=== PATIENT | female | born 1975 | race Caucasian/White ===

== ENCOUNTER → 2017-11-07 | Outpatient (CLI) | payer OTHER | LOC: M.RAD 11:02 | DX: Z12.31 Encounter for screening mammogram for malignant neoplasm of breast (principal) ==

== ENCOUNTER → 2018-02-23 | Outpatient (CLI) | payer OTHER ==
--- NOTE | 2018-02-23 11:37 | CARDNUC ---
[place] [address] CARDIAC NUCLEAR IMAGING REPORT Name: TINA GARCIA Room: [facility]#: [id number] Admission: 02/23/18 Attend Phys: Scot Haider, Discharge: Date of : 71 Date of Service: 02/23/18 1137 Report #: [id number] THIS REPORT FOR: //name// APPROVED REPORT Imaging Protocol: Rest Tc-99m/Stress Tc-99m 1 day Study performed: 02/23/2018 07:15:00 Indication: chest pain Patient Location: Out-Patient Stress Tech: Jeannette Johnson Stress Nurse: Adore Buck RN NM Tech:AL Christensen Ht: 5 ft 5 in Wt: 167 lbs BSA: 1.83 m2 BMI: 27.78 Medical History Medical History: none Medications: none Allergies: erythromycin Previous Cardiac Procedures: none Exercise History: Physically active Resting Data Rest SPECT myocardial perfusion imaging was performed in supine position 30 minutes following the intravenous injection of 10.4 mCi of Tc-99m Sestamibi. Time of rest injection: 739 Date: 02/23/2018 Time of rest imagin The images were gated to evaluate regional wall motion and calculate left ventricular ejection fraction. Administration Route: IV Administration Site: Left Hand Exercise Stress At peak stress, the patient was injected intravenously with 33.0mCi of Tc-99m Sestamibi. Time of stress injection: 954 Time of stress imagin Administration Route: IV Administration Site: Left Hand Gated Stress SPECT was performed 30 minutes after stress injection. The images were gated to evaluate regional [place] [address] CARDIAC NUCLEAR IMAGING REPORT Name: JOSETINA Copeland Room: [facility]#: [id number] Admission: 02/23/18 Attend Phys: Scot Haider, Discharge: Date of : 71 Date of Service: 02/23/18 1137 Report #: [id number] left ventricular ejection fraction. Prone imaging was performed. Stress Test Details Stress Test: Exercise stress testing was performed using a Bud protocol. HR Max Heart Rate (APMHR): 175 bpm Resting HR: 81 bpm Target HR (85% APMHR): 148 bpm Max HR Achieved: 171 bpm % of APMHR: 97 Recovery HR: 110 bpm BP Resting BP: 128/80 mmHg Recovery BP: 133/90 mmHg ECG Resting ECG: Sinus Rhythm, normal EKG Stress ECG: Sinus Tachycardia ST Change: None Arrhythmia: None Recovery ECG: Sinus Rhythm, normal EKG Recovery ST Change: None Recovery Arrhythmia: None Clinical Reason for Termination: Fatigue, Dyspnea Exercise duration: 7.0 min sec Exercise capacity: 8.54 METs Functional Aerobic Impairment 99% The patient tolerated standard Bud protocol exercise without significant symptoms. Stress ECG Conclusion The baseline 12-lead electrocardiogram shows sinus rhythm without significant ST or T wave abnormality. EKGs obtained during and post exercise showed sinus rhythm and sinus tachycardia with no significant ST or T wave changes when compared to baseline. There were no stress-induced arrhythmias. Study Quality Study: Good Artifact: [place] [address] CARDIAC NUCLEAR IMAGING REPORT Name: ELMADeonTINA Room: [facility]#: [id number] Admission: 02/23/18 Attend Phys: Scot Haider, Discharge: Date of : 71 Date of Service: 02/23/18 1137 Report #: [id number] At rest, the left ventricular ejection fraction was 72%.. Post stress, the left ventricular ejection was 77%.. TID = 0.82. Perfusion Normal left ventricular perfusion. Wall Motion Normal left ventricular wall motion. Nuclear Conclusion ECG Findings: negative for ischemia Clinical Findings: negative for ischemia Nuclear Findings: negative for ischemia Exercise Capacity: normal Left Ventricular Function: normal Risk Study: low Myocardial perfusion images show no defect to suggest infarct or ischemia. Left ventricular systolic function appears normal on gated studies. This is a low risk study. <Conclusion> The baseline 12-lead electrocardiogram shows sinus rhythm without significant ST or T wave abnormality. EKGs obtained during and post exercise showed sinus rhythm and sinus tachycardia with no significant ST or T wave changes when compared to baseline. There were no stress-induced arrhythmias. <ELECTRONICALLY SIGNED> By: Chris Randle MD, FACC 02/23/18 1137 1137 1137 Chris Randle MD, FACC /INF
== END ==
LOC: M.NUC 02-03 15:05
DX: R07.89 Other chest pain (principal); Z88.0 Allergy status to penicillin

== ENCOUNTER → 2018-02-24 | Outpatient (CLI) | payer OTHER ==
[2018-02-24 10:41] LABS: URINE BILIRUBIN NEGATIVE (Negative); URINE BLOOD NEGATIVE (Negative); URINE CLARITY CLEAR; URINE COLOR YELLOW; URINE GLUCOSE-RANDOM NEGATIVE (Negative); URINE KETONES NEGATIVE (Negative); URINE LEUKOCYTES NEGATIVE (Negative); URINE NITRITE NEGATIVE (Negative); URINE PROTEIN NEGATIVE (Negative); URINE SPECIFIC GRAVITY <= 1.005 (1.005-1.030); URINE UROBILINOGEN 0.2 E.U./dl (0.2-1.0)
[2018-02-24 10:44] LABS: ABSOLUTE EOSINOPHILS 0.3 thou/uL (0.0-0.7); ABSOLUTE LYMPHOCYTES 2.8 thou/uL (0.8-5.3); ABSOLUTE MONOCYTES 0.4 thou/uL (0.0-1.2); BASOPHILS 0.6 %; EOSINOPHILS 3.2 %; HEMATOCRIT 41.5 % (37.0-47.0); HEMOGLOBIN 14.1 gm/dL (12.0-15.0); LYMPHOCYTES 32.9 %; MCH 31.6 pg (26.0-34.0); MCV 92.9 fL (80.0-100.0); MPV 8.3 fl. (7.2-11.1); NUCLEATED RBCS 0 /100WBC; PLATELET COUNT* 295 thou/uL (150-400); POLYS 58.3 %; RBC 4.47 mil/uL (4.20-5.00); WBC 8.6 thou/uL (4.0-11.0)
[2018-02-24 11:09] LABS: ALBUMIN 3.7 g/dL (3.4-5.0); ALKALINE PHOSPHATASE 57 U/L (46-116); ANION GAP 9 mmol/L (7-16); BUN 8 mg/dL (7-18); CALCIUM 8.5 mg/dL (8.5-10.1); CHLORIDE 102 mmol/L (98-107); CHOLESTEROL 202 mg/dL (<200); CO2 25 mmol/L (21-32); CREATININE 0.9 mg/dL (0.6-1.3); GLUCOSE 92 mg/dL (70-99); HDL CHOLESTEROL 59 mg/dL (>40); LDL CHOLESTEROL 127 mg/dL (<100); POTASSIUM 3.8 mmol/L (3.5-5.1); SGOT 17 U/L (15-37); SGPT 22 U/L (30-65); SODIUM 136 mmol/L (136-145); TC:HDL 3.4 Ratio (Not establshd); TOTAL BILIRUBIN 0.5 mg/dL (<0.1-1.0); TOTAL PROTEIN 7.4 g/dL (6.4-8.2); TRIGLYCERIDE 80 mg/dL (<150); VLDL 16 mg/dL (<40)
[2018-02-24 11:16] LABS: SERUM ASSESSMENT Clear
== END ==
LOC: M.LAB 10:08
PROVIDERS: Internal Medicine Cardiovascular Disease
DX: E78.00 Pure hypercholesterolemia, unspecified (principal); R03.0 Elevated blood-pressure reading, without diagnosis of hypertension; R53.83 Other fatigue; R07.89 Other chest pain; G47.33 Obstructive sleep apnea (adult) (pediatric)

== ENCOUNTER → 2018-04-03 | Outpatient (CLI) | payer OTHER | END | disposition home or self-care (01) | LOC: M.MRI 15:32 | DX: M51.16 Intervertebral disc disorders with radiculopathy, lumbar region (principal); M46.96 Unspecified inflammatory spondylopathy, lumbar region ==

== ENCOUNTER → 2018-07-20 | Outpatient (CLI) | payer OTHER | LOC: M.ULTRA 09:03 | DX: N94.6 Dysmenorrhea, unspecified (principal); N83.291 Other ovarian cyst, right side; N83.292 Other ovarian cyst, left side; R10.2 Pelvic and perineal pain ==

== ENCOUNTER → 2018-10-20 | Outpatient (CLI) | payer OTHER ==
[2018-10-20 13:23] LABS: CHOLESTEROL 218 mg/dL (<200); HDL CHOLESTEROL 66 mg/dL (>40); LDL CHOLESTEROL 134 mg/dL (<100); SERUM ASSESSMENT Clear; TC:HDL 3.3 Ratio (Not establshd); TRIGLYCERIDE 93 mg/dL (<150); VLDL 19 mg/dL (<40)
[2018-10-20 22:07] LABS: GLYCOHEMOGLOBIN (HGB A1C) 5.3 % (4.8-5.6)
== END ==
LOC: M.LAB 12:44
PROVIDERS: Obstetrics & Gynecology
DX: Z13.220 Encounter for screening for lipoid disorders (principal); Z13.1 Encounter for screening for diabetes mellitus; Z68.29 Body mass index [BMI] 29.0-29.9, adult; Z83.3 Family history of diabetes mellitus

== ENCOUNTER → 2018-11-23 | Outpatient (CLI) | payer OTHER | LOC: M.RAD 09:37 | DX: Z12.31 Encounter for screening mammogram for malignant neoplasm of breast (principal) ==

== ENCOUNTER → 2019-04-16 | Outpatient (CLI) | payer OTHER ==
[2019-04-16 10:27] LABS: ABSOLUTE BASOPHILS 0.1 thou/uL (0.0-0.2); ABSOLUTE EOSINOPHILS 0.1 thou/uL (0.0-0.7); ABSOLUTE LYMPHOCYTES 3.2 thou/uL (0.8-5.3); ABSOLUTE MONOCYTES 0.5 thou/uL (0.0-1.2); ABSOLUTE NEUTROPHILS 4.6 thou/uL (1.6-8.1); BASOPHILS 0.9 %; EOSINOPHILS 0.7 %; HEMATOCRIT 43.1 % (37.0-47.0); HEMOGLOBIN 14.8 gm/dL (12.0-15.0); LYMPHOCYTES 37.4 %; MCH 31.5 pg (26.0-34.0); MCHC 34.4 g/dL (28.0-37.0); MCV 91.6 fL (80.0-100.0); MONOCYTES 6.1 %; MPV 8.7 fl. (7.2-11.1); NUCLEATED RBCS 0 /100WBC; PLATELET COUNT* 286 thou/uL (150-400); POLYS 54.9 %; RBC 4.71 mil/uL (4.20-5.00); WBC 8.4 thou/uL (4.0-11.0)
[2019-04-16 10:31] LABS: URINE BILIRUBIN NEGATIVE (Negative); URINE BLOOD NEGATIVE (Negative); URINE CLARITY CLEAR; URINE COLOR YELLOW; URINE GLUCOSE-RANDOM NEGATIVE (Negative); URINE KETONES NEGATIVE (Negative); URINE LEUKOCYTES NEGATIVE (Negative); URINE NITRITE NEGATIVE (Negative); URINE PROTEIN NEGATIVE (Negative); URINE UROBILINOGEN 0.2 E.U./dl (0.2-1.0)
[2019-04-16 10:41] LABS: ALKALINE PHOSPHATASE 72 U/L (46-116); ANION GAP 6 mmol/L (7-16); BUN 11 mg/dL (7-18); CALCIUM 9.5 mg/dL (8.5-10.1); CHLORIDE 101 mmol/L (98-107); CHOLESTEROL 221 mg/dL (<200); CO2 31 mmol/L (21-32); GLUCOSE 98 mg/dL (70-99); HDL CHOLESTEROL 66 mg/dL (>40); LDL CHOLESTEROL 145 mg/dL (<100); POTASSIUM 3.9 mmol/L (3.5-5.1); SGOT 12 U/L (15-37); SGPT 34 U/L (30-65); SODIUM 138 mmol/L (136-145); TC:HDL 3.3 Ratio (Not establshd); TOTAL BILIRUBIN 0.7 mg/dL (<0.1-1.0); TOTAL PROTEIN 7.7 g/dL (6.4-8.2); TRIGLYCERIDE 53 mg/dL (<150); VLDL 11 mg/dL (<40)
[2019-04-16 10:55] LABS: SERUM ASSESSMENT Clear
[2019-04-16 11:33] LABS: ESR (SEDRATE) 9 mm/hr (0-20)
[2019-04-18 11:11] LABS: ANA INTERPRETATION Negative (Negative)
== END ==
LOC: M.LAB 09:59
PROVIDERS: Family Medicine
DX: E78.00 Pure hypercholesterolemia, unspecified (principal); R03.0 Elevated blood-pressure reading, without diagnosis of hypertension; R21 Rash and other nonspecific skin eruption; R53.83 Other fatigue; Z68.25 Body mass index [BMI] 25.0-25.9, adult

== ENCOUNTER → 2019-11-13 | Outpatient (CLI) | payer OTHER | LOC: M.LAB 13:05 | DX: Z11.59 Encounter for screening for other viral diseases (principal) ==

== ENCOUNTER → 2020-02-08 | Outpatient (CLI) | payer OTHER | LOC: M.RAD 09:19 | DX: Z12.31 Encounter for screening mammogram for malignant neoplasm of breast (principal); N60.82 Other benign mammary dysplasias of left breast; N60.81 Other benign mammary dysplasias of right breast ==

== ENCOUNTER → 2020-02-28 | Outpatient (CLI) | payer OTHER ==
[2020-02-28 10:32] LABS: ABSOLUTE EOSINOPHILS 0.2 thou/uL (0.0-0.7); ABSOLUTE LYMPHOCYTES 2.6 thou/uL (0.8-5.3); ABSOLUTE MONOCYTES 0.4 thou/uL (0.0-1.2); ABSOLUTE NEUTROPHILS 4.2 thou/uL (1.6-8.1); BASOPHILS 0.4 %; EOSINOPHILS 2.7 %; HEMATOCRIT 41.6 % (37.0-47.0); HEMOGLOBIN 14.4 gm/dL (12.0-15.0); MCH 31.8 pg (26.0-34.0); MCHC 34.6 g/dL (28.0-37.0); MONOCYTES 5.3 %; MPV 8.5 fl. (7.2-11.1); NUCLEATED RBCS 0 /100WBC; PLATELET COUNT* 214 thou/uL (150-400); POLYS 56.6 %; RBC 4.52 mil/uL (4.20-5.00); RDW-CV 13.2 % (10.5-14.5); WBC 7.4 thou/uL (4.0-11.0)
[2020-02-28 10:46] LABS: ALBUMIN 3.8 g/dL (3.4-5.0); ALKALINE PHOSPHATASE 62 U/L (46-116); ANION GAP 10 mmol/L (7-16); BUN 9 mg/dL (7-18); CALCIUM 8.7 mg/dL (8.5-10.1); CHLORIDE 102 mmol/L (98-107); CHOLESTEROL 136 mg/dL (<200); CO2 24 mmol/L (21-32); CREATININE 0.9 mg/dL (0.6-1.3); GLUCOSE 92 mg/dL (70-99); HDL CHOLESTEROL 68 mg/dL (>40); LDL CHOLESTEROL 58 mg/dL (<100); POTASSIUM 4.4 mmol/L (3.5-5.1); SGOT 22 U/L (15-37); SGPT 28 U/L (30-65); SODIUM 136 mmol/L (136-145); TOTAL BILIRUBIN 0.4 mg/dL (<0.1-1.0); TOTAL PROTEIN 7.4 g/dL (6.4-8.2); TRIGLYCERIDE 50 mg/dL (<150); VLDL 10 mg/dL (<40)
[2020-02-28 10:49] LABS: SERUM ASSESSMENT Clear
== END ==
LOC: M.LAB 10:06
PROVIDERS: ATTEND Family Medicine
DX: E78.00 Pure hypercholesterolemia, unspecified (principal); R03.0 Elevated blood-pressure reading, without diagnosis of hypertension

== ENCOUNTER → 2020-12-04 | Outpatient (CLI) | payer OTHER | LOC: M.RAD 11:07 | PROVIDERS: ATTEND Family Medicine | DX: N64.4 Mastodynia (principal) ==